=== PATIENT | female | born 1960 | race Caucasian/White ===

== ENCOUNTER 2021-03-10 06:02 | Day surgery (SDC) | payer OTHER ==
[~2021-03-10] VITALS: Ht 162.6 cm; Wt 83.0 kg
[2021-03-10 07:10] LABS: BASOPHILS # (AUTO) 0.1 K/uL (0.00-0.22); BASOPHILS % (AUTO) 0.8 % (0.0-2.0); EOSINOPHILS # (AUTO) 0.3 K/uL (0-0.4); EOSINOPHILS % (AUTO) 4.6 % (0.0-4.0); HEMATOCRIT 36.3 % (36-48); HEMOGLOBIN 12.6 g/dL (12.0-16.0); LYMPHOCYTES # (AUTO) 1.7 K/uL (2.5-16.5); LYMPHOCYTES % (AUTO) 23.5 % (20.5-51.1); MEAN CORPUSCULAR HEMOGLOBIN 30 pg (27-31); MEAN CORPUSCULAR HGB CONC 35 g/dL (33-37); MEAN CORPUSCULAR VOLUME 87.6 fL (80-94); MONOCYTES # (AUTO) 0.6 K/uL (0.8-1.0); MONOCYTES % (AUTO) 7.7 % (1.7-9.3); NEUTROPHILS # (AUTO) 4.7 K/uL (1.8-7.7); NEUTROPHILS % (AUTO) 63.4 % (42.2-75.2); PLATELET COUNT (AUTO) 233 K/uL (140-450); RED BLOOD CELL COUNT(AUTO) 4.14 MIL/uL (4.20-5.40); RED CELL DISTRIBUTION WIDTH 13.4 % (11.6-13.7); WHITE BLOOD COUNT (AUTO) 7.4 K/uL (4.8-10.8)
[2021-03-10 07:29] LABS: PROTHROMBIN TIME 10.2 secs (10.8-13.4)
[2021-03-10] MEDS ORDERED: LIDOCAINE 2% 1000 MG/50 ML VIAL INJ ONE ×2 (07:32→08:00)
== END 2021-03-10 09:20 | disposition home or self-care (01) ==
LOC: MDS 06:02 → MMU 06:03 → MDS 09:20
PROVIDERS: ATTEND Internal Medicine Gastroenterology
DX: K75.81 Nonalcoholic steatohepatitis (NASH) (principal); Z98.82 Breast implant status; Z79.899 Other long term (current) drug therapy
CPT/HCPCS: 36415; 47000; 76942; 85025; 85610; 85730; 87426; J2001